=== PATIENT | female | born 1940 | race Asian ===

== ENCOUNTER 2021-07-16 16:30 | Emergency (ER) | payer OTHER ==
[~2021-07-16] VITALS: Ht 152.4 cm; Wt 52.6 kg
[2021-07-16 16:37] VITALS: BP 130/66
[2021-07-16] MEDS ORDERED: MORPHINE SULFATE 4 MG/ML SYR IVP ONE (16:55)
[2021-07-16] MEDS ORDERED: ONDANSETRON 4 MG/2 ML VIAL IVP ONE (16:55)
--- NOTE | 2021-07-16 17:15 | NUR ---
PT TAKEN TO XR VIA SLOANE
--- NOTE | 2021-07-16 18:00 | NUR ---
80YO FEMALE PT C/O R HIP PAIN DUE TO FALL. PT SLIPPED AND FELL ON HIP. DENIES LOC OR INJURY TO HEAD. PT UNABLE TO AMBULATE AND HAS VISIBLE DISCOMFORT. PT AAOX3 WITH SOME CONFUSION. PT DENIES CHEST PAIN , D/V/N OR FEVERS. PT LEG PRESENTS WITHOUT EDEMA OR BRUISING. PT PUT ON MONITOR. SON AT BEDSIDE. O2 AT 62 ROOM AIR. PT PUT ON 4L VIA NASAL CANULA. WILL CONTINUE TO MONITOR. BED AT LOWEST POSITION, BED RAILS UP X2 NKA HX: COPD, HTN
[2021-07-16] MEDS ORDERED: NACL 0.9% 1,000 ML IV ONE (18:35)
--- NOTE | 2021-07-16 18:54 | NUR ---
XRAY AT BEDSIDE
--- NOTE | 2021-07-16 19:29 | NUR ---
REPORT GIVEN TO HOSSEIN MILLAN. TRANSFER OF CARE AT THIS TIME
[2021-07-16 19:34] LABS: BASOPHILS % (AUTO) 0.3 % (0.0-2.0); EOSINOPHILS % (AUTO) 0.2 % (0.0-4.0); HEMATOCRIT 40.5 % (36-48); HEMOGLOBIN 13.1 g/dL (12.0-16.0); LYMPHOCYTES # (AUTO) 3.5 K/uL (2.5-16.5); LYMPHOCYTES % (AUTO) 23.7 % (20.5-51.1); MEAN CORPUSCULAR HEMOGLOBIN 30 pg (27-31); MEAN CORPUSCULAR HGB CONC 33 g/dL (33-37); MONOCYTES # (AUTO) 0.8 K/uL (0.8-1.0); MONOCYTES % (AUTO) 5.7 % (1.7-9.3); NEUTROPHILS # (AUTO) 10.4 K/uL (1.8-7.7); NEUTROPHILS % (AUTO) 70.1 % (42.2-75.2); PLATELET COUNT (AUTO) 236 K/uL (140-450); RED BLOOD CELL COUNT(AUTO) 4.35 MIL/uL (4.20-5.40); RED CELL DISTRIBUTION WIDTH 13.5 % (11.6-13.7); WHITE BLOOD COUNT (AUTO) 14.8 K/uL (4.8-10.8)
[2021-07-16 19:52] LABS: PROTHROMBIN TIME 10.5 secs (10.8-13.4)
--- NOTE | 2021-07-16 20:05 | NUR ---
DR CHASE AT BEDSIDE DISCUSSING EXAM RESULTS
[2021-07-16 20:19] LABS: ALBUMIN 3.2 g/dL (3.4-5.0); ANION GAP 11.8 (8-16); ASPARTATE AMINOTRANSFERASE 20 U/L (15-37); CARBON DIOXIDE 27.3 mmol/L (21-32); CHLORIDE 100 mmol/L (98-107); CREATININE 0.7 mg/dL (0.6-1.3); GLUCOSE 144 mg/dL (74-106); POTASSIUM 4.1 mmol/L (3.5-5.1); SODIUM SERUM 135 mmol/L (136-145); TOTAL BILIRUBIN 0.9 mg/dL (0.0-1.0); UREA NITROGEN, BLOOD 13 mg/dL (7-18)
--- NOTE | 2021-07-16 20:45 | NUR ---
FURTHER DISCUSSION WITH DR CHASE, PT, AND PTS DAUGHTER RE: LEAVING AMA. INTERPRETOR PHONE WAS USED ([id number]).PT AND DAUGHTER ARE WILLING TO ACCEPT RISKS OF LEAVING AMA
[2021-07-16] MEDS ORDERED: IBUP-2213 PO (20:52)
[2021-07-16] MEDS ORDERED: ACET-8386 PO (20:52)
== END 2021-07-16 20:43 | disposition left against medical advice (07) ==
LOC: MED 16:30
DX: S72.091A Other fracture of head and neck of right femur, initial encounter for closed fracture (principal); Z20.822 Contact with and (suspected) exposure to COVID-19; M25.561 Pain in right knee; J44.9 Chronic obstructive pulmonary disease, unspecified; Z79.899 Other long term (current) drug therapy; W10.9XXA Fall (on) (from) unspecified stairs and steps, initial encounter; Y93.89 Activity, other specified; Y92.89 Other specified places as the place of occurrence of the external cause; Y99.8 Other external cause status
CPT/HCPCS: 36415; 71045; 72170; 73502; 73562; 80053; 85025; 85610; 85730; 87426; 93005; 96361; 96374; 96375; 99285; J2270; J2405; J7030; Q0092